=== PATIENT | female | born 1985 | race Caucasian/White ===

== ENCOUNTER → 2018-01-17 14:30 | Outpatient (RCR) | payer SELFPAY ==
--- NOTE | 2016-03-19 14:15 | TODAY_ITS ---
To: VIVI SAHU Reason for today's visit: [facility] Plan: Ava is and C says her DORIS has lapsed; I check ed and she is active; i let her know and will check again tomorrow Action Plan: Chronic Condition: Referred to:
--- NOTE | 2016-03-20 09:45 | TODAY_ITS ---
To: VIVI SAHU Reason for today's visit: [facility] Plan: I checked portal again and zeke is not active; i called her and we scheduled for at 2:30 Action Plan: Chronic Condition: Referred to:
--- NOTE | 2016-03-22 14:30 | TODAY_ITS ---
To: ST MILADY SAHU,C Reason for today's visit: [facility] Plan: Ava is due 04/09 and [facility] has lapsed for her, the two girls and Duong Alcala. Duong has MCR so i called [facility] and Phuong worked diligently to renew Ava and the girls fo Dr. Damon/[place]; they should be active in -: she also renewed Duong but says he will have to wait for income verification. Action Plan: I will check saturday Chronic Condition: Referred to:
== END ==
LOC: COCO 03-19 14:15
PROVIDERS: PCP Nurse Practitioner Family; Visit Provider Nurse Practitioner Family
DX: R69 Illness, unspecified (principal)

== ENCOUNTER 2018-11-09 12:16 | Emergency (ER) | payer SELFPAY ==
[2018-11-09 12:17] VITALS: BP 123/71; PULSE 92; RESP 14; TEMP 36.7
--- NOTE | 2018-11-09 12:46 | W.ED.GENAD ---
Discharge Plan Disposition Patient Disposition: HOME Discharge Details Chief Complaint: EyeProblem Clinical Impression: Hordeolum externum left upper eyelid Primary Care Provider: Judy Her ED Provider: Estrada Drew Home Meds and New Rx's Prescriptions: New erythromycin 5 mg/gram (0.5 %) ointment 0.5 inch OP QID 7 Days Qty: 3.5 RF: 0 No Action tylenol 650 mg PO PRN RF: 0 Discharge Instructions Instructions: Erythromycin (Into the eye), Stye (ED) Additional Instructions: Please use antibiotic ointment. Apply 0.5 inch ribbon to left eye 4 times a day for 1 week. If symptoms do not improve over the next 24 hours, follow-up with an prescription eyeglass maker. Return to the emerge department for any worsening or new concerning symptoms. Referrals: [facility] [Outside] Discharge Data Discharge Date/Time-TO BE ENTERED AT DEPARTURE: 11/09/18 14:10 Medical Decision Making 33yo f here with 6 days of left eye inflammation, worsening swelling left upper eyelid with discharge. Visual acuity left abnormal. No pain with EOM. Cornea normal after stain and under shahid lamp. Left upper lid with erythema and swelling with stye. Lifted eye superiorly and patient notes vision normalized - suspect swollen lid impacting vision. Erythromycin eye ointment applied and patient advised to follow-up with opthalmology. Paient was encouraged to return immediately for any worsening or new concerning symptoms. HPI General Mode of arrival: ambulatory. Date/Time Provider Initiated Documentation: 11/09/18 12:33. Limitations to Documentation: no limitations. Information obtained by: patient. HPI Narrative: 33yo f presents with left eye inflammation. Patient notes that it felt like someone was in her eye 6 days ago. 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 Symptoms improved after a day and then returned and worse over the past few days. Feels uncomfortable. Now with associated swelling of upper lid. Patient notes crusty discharge in AM. Blurred vision past couple days that she attributes to discharge. No fever. Related Data Home Medications Medication Instructions Recorded Confirmed Tylenol 650 mg PO PRN 12/15/15 06/13/16 erythromycin 0.5 inch OP QID 7 Days #3.5 gm 11/09/18 Previous Rx's Medication Instructions Recorded erythromycin 0.5 inch OP QID 7 Days #3.5 gm 11/09/18 Allergies Allergy/AdvReac Type Severity Reaction Status Date / Time No Known Drug Allergies Allergy Unverified 07/09/16 08:38 General Stated Complaint: EyeProblem ADRIANA: 4 Review of Systems Constitutional Denies fever(s) and Denies headache(s) Eyes Reports as per HPI ENT Denies headache(s) Neurologic Denies headache(s) PFSH Medical History Depression affecting , Surgical History wisdom teeth extractioln Family History Mother Essential hypertension Father Alcohol abuse Sister No problems noted. Sister No problems noted. Brother ADHD (attention deficit hyperactivity disorder) Social History Smoking/Tobacco Use Status: Current every day Tobacco Type: cigarettes Alcohol Intake: current Alcohol Intake frequency: a few times a week Alcohol type: beer Drug use: Never Substance use type: does not use Do you feel safe at home: Yes Do you feel safe in your relationship?: Yes Exam HENMT Head: normal to inspection General nose exam: external nose normal Face and sinus: normal facial exam and sinuses nontender Mouth: oral mucosae normal Eyes Alignment and Position: alignment normal Periorbital: periorbital findings normal Eyelids: eyelid abnormality left upper eyelid erythema and swelling; without foreign bodies Conjunctivae: conjunctivae normal Sclera: sclerae normal Cornea: corneas normal and fluorescein used Pupils: PERRL EOM: EOM intact bilaterally (no pain) Direct ophthalmoscopy: normal light reflex and no papilledema Neuro General: alert and awake Cognition: normal cognition Course Vital Signs Temperature 36.7 C 11/09/18 12:17 Pulse 92 H 11/09/18 12:17 Respiratory Rate 14 11/09/18 12:17 Blood Pressure 123/71 11/09/18 12:17 Temperature 36.7 C 11/09/18 12:17 Temperature Source Temporal Artery Scan 11/09/18 12:17 Pulse 92 H 11/09/18 12:17 Respiratory Rate 14 11/09/18 12:17 Respiratory Effort Non-Labored 11/09/18 12:22 Blood Pressure 123/71 11/09/18 12:17 Blood Pressure Position Sitting 11/09/18 12:17 Oxygen Delivery Method Room Air 11/09/18 12:17 Oxygen Flow Rate 0 11/09/18 12:17 Pain Level 5 11/09/18 12:17
--- NOTE | 2018-11-09 13:30 | NUR.NOTE ---
at bedside for eye eval Nursing Note:
--- NOTE | 2018-11-09 13:58 | ED.GENADUL_ITS ---
Discharge Plan Disposition Patient Disposition: HOME Discharge Details Chief Complaint: EyeProblem Clinical Impression: Hordeolum externum left upper eyelid Primary Care Provider: Judy Her ED Provider: Estrada Drew Home Meds and New Rx's Prescriptions: New erythromycin 5 mg/gram (0.5 %) ointment 0.5 inch OP QID 7 Days Qty: 3.5 RF: 0 No Action tylenol 650 mg PO PRN RF: 0 Discharge Instructions Instructions: Erythromycin (Into the eye), Stye (ED) Additional Instructions: Please use antibiotic ointment. Apply 0.5 inch ribbon to left eye 4 times a day for 1 week. If symptoms do not improve over the next 24 hours, follow-up with an residential support specialist. Return to the emerge department for any worsening or new concerning symptoms. Referrals: [facility] [Outside] Discharge Data Discharge Date/Time-TO BE ENTERED AT DEPARTURE: 11/09/18 14:10 Medical Decision Making 33yo f here with 6 days of left eye inflammation, worsening swelling left upper eyelid with discharge. Visual acuity left abnormal. No pain with EOM. Cornea normal after stain and under shahid lamp. Left upper lid with erythema and swelling with stye. Lifted eye superiorly and patient notes vision normalized - suspect swollen lid impacting vision. Erythromycin eye ointment applied and patient advised to follow-up with opthalmology. Paient was encouraged to return immediately for any worsening or new concerning symptoms. HPI General Mode of arrival: ambulatory . Date/Time Provider Initiated Documentation: 11/09/18 12:33 . Limitations to Documentation: no limitations . Information obtained by: patient . HPI Narrative: 33yo f presents with left eye inflammation. Patient notes that it felt like someone was in her eye 6 days ago. 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 Symptoms improved after a day and then returned and worse over the past few days. Feels uncomfortable. Now with associated swelling of upper lid. Patient notes crusty discharge in AM. Blurred vision past couple days that she attributes to discharge. No fever. Related Data Home Medications Medication Instructions Recorded Confirmed Tylenol 650 mg PO PRN 12/15/15 06/13/16 erythromycin 0.5 inch OP QID 7 Days #3.5 gm 11/09/18 Previous Rx's Medication Instructions Recorded erythromycin 0.5 inch OP QID 7 Days #3.5 gm 11/09/18 Allergies Allergy/AdvReac Type Severity Reaction Status Date / Time No Known Drug Allergies Allergy Unverified 07/09/16 08:38 General Stated Complaint: EyeProblem ADRIANA: 4 Review of Systems Constitutional Denies fever(s) and Denies headache(s) Eyes Reports as per HPI ENT Denies headache(s) Neurologic Denies headache(s) PFSH Medical History Depression affecting , Surgical History wisdom teeth extractioln Family History Mother Essential hypertension Father Alcohol abuse Sister No problems noted. Sister No problems noted. Brother ADHD (attention deficit hyperactivity disorder) Social History Smoking/Tobacco Use Status: Current every day Tobacco Type: cigarettes Alcohol Intake: current Alcohol Intake frequency: a few times a week Alcohol type: beer Drug use: Never Substance use type: does not use Do you feel safe at home: Yes Do you feel safe in your relationship?: Yes Exam HENMT Head: normal to inspection General nose exam: external nose normal Face and sinus: normal facial exam and sinuses nontender Mouth: oral mucosae normal Eyes Alignment and Position: alignment normal Periorbital: periorbital findings normal Eyelids: eyelid abnormality left upper eyelid erythema and swelling; without foreign bodies Conjunctivae: conjunctivae normal Sclera: sclerae normal Cornea: corneas normal and fluorescein used Pupils: PERRL EOM: EOM intact bilaterally (no pain) Direct ophthalmoscopy: normal light reflex and no papilledema Neuro General: alert and awake Cognition: normal cognition Course Vital Signs Temperature 36.7 C 11/09/18 12:17 Pulse 92 H 11/09/18 12:17 Respiratory Rate 14 11/09/18 12:17 Blood Pressure 123/71 11/09/18 12:17 Temperature 36.7 C 11/09/18 12:17 Temperature Source Temporal Artery Scan 11/09/18 12:17 Pulse 92 H 11/09/18 12:17 Respiratory Rate 14 11/09/18 12:17 Respiratory Effort Non-Labored 11/09/18 12:22 Blood Pressure 123/71 11/09/18 12:17 Blood Pressure Position Sitting 11/09/18 12:17 Oxygen Delivery Method Room Air 11/09/18 12:17 Oxygen Flow Rate 0 11/09/18 12:17 Pain Level 5 11/09/18 12:17
== END 2018-11-09 14:10 | disposition home or self-care (01) ==
PROVIDERS: Emergency Provider Student in an Organized Health Care Education/Training Program; PCP Nurse Practitioner Family
DX: H00.014 Hordeolum externum left upper eyelid (principal)
CPT/HCPCS: 99283